=== PATIENT | female | born 1935 | race Caucasian/White ===

== ENCOUNTER 2018-02-07 09:36 | Outpatient (CLI) | payer MEDICARE, SELFPAY ==
[2018-02-07 10:53] LABS: ALT 30 U/L (12-78); AST 26 U/L (15-37); Albumin 3.8 g/dL (3.4-5.0); Alkaline Phosphatase 102 U/L (46-116); Anion Gap 8.8 mmol/L (3-11); BUN 21 mg/dL (7-18); Bilirubin, Total 0.5 mg/dL (0.2-1.0); CO2 27.2 mmol/L (21.0-32.0); CREATININE 0.93 mg/dL (0.55-1.02); Chloride 105 mmol/L (98-107); Cholesterol 248 mg/dL (50-200); Estimated GFR 57.86 (mL/min/1.73m2); Glucose 96 mg/dL (70-100); HDL Cholesterol 70 mg/dL (40-60); LDL CHOLESTEROL 155 mg/dL (<100); Potassium 3.9 mmol/L (3.5-5.1); Sodium 141 mmol/L (136-145); Total Protein 7.1 g/dL (6.4-8.2); Triglyceride 126 mg/dL (30-150)
== END 2018-02-07 09:56 ==
DX: E78.00 Pure hypercholesterolemia, unspecified (principal); I10 Essential (primary) hypertension
CPT/HCPCS: 36415; 80053; 80061; 83721

== ENCOUNTER 2018-02-08 01:06 | Outpatient (CLI) | payer MEDICARE, SELFPAY ==
--- NOTE | 2018-02-08 11:05 | DI.MAMMO_ITS ---
SYMPTOM/DIAGNOSIS: SCREENING. BILATERAL SCREENING MAMMOGRAM: Mammograms were interpreted according to the usual protocol including computer analysis with CAD system, tomosynthesis and C view imaging. Comparison is made with exams from 2010 through 2016. The breasts are composed of scattered fibroglandular densities breast density category B. No suspicious masses or suspicious microcalcifications are seen. There has been no significant change. IMPRESSION: Category 1-B, negative mammogram. Continued screening should be based on the patient's clinical status given her age. [facility] ASSESSMENT OF FINDINGS: Negative. Category 1. Patient will receive a letter notifying them of these results. BI-RADS category B. There are scattered areas of fibroglandular density.
== END 2018-02-08 01:26 ==
DX: Z12.31 Encounter for screening mammogram for malignant neoplasm of breast (principal)
CPT/HCPCS: 77063; 77067

== ENCOUNTER 2019-02-28 00:40 | Outpatient (CLI) | payer MEDICARE, SELFPAY ==
--- NOTE | 2019-02-28 12:21 | DI.MAMMO_ITS ---
EXAM: MG MAMMO SCREENING CLINICAL HISTORY: screening Z12.39. TECHNIQUE: Bilateral full field digital CC and MLO mammographic images were obtained with 3D tomosyn thesis and utilizing computer aided detection (CAD). COMPARISON: There are multiple priors with the most recent from 02/08/2018. FINDINGS: Masses/Architectural Distortion: None seen. Microcalcifications: No suspicious pleomorphic-type are seen. IMPRESSION: 1. No significant interval change with no specific features of malignancy noted. 2. Unless there is more urgent need, screening mammography is recommended, as per [employer] guidelines. ACR BI-RAD Category- 1 Negative Breast Density - Category B - Scattered areas of fibroglandular density A negative radiographic report should not delay biopsy if a dominant or clinically suspicious mass is present. Up to ten percent of cancers are not identified on mammography. A negative report may reinforce clinical impression. Adenosis and dense breasts may obscure an underlying neoplasm. False positive reports average 6 to 10%.
== END 2019-02-28 01:00 ==
DX: Z12.31 Encounter for screening mammogram for malignant neoplasm of breast (principal)
CPT/HCPCS: 77063; 77067

== ENCOUNTER 2019-03-09 03:17 | Outpatient (CLI) | payer MEDICARE, SELFPAY ==
[2019-03-09 10:14] LABS: ALT 21 U/L (14-59); AST 19 U/L (15-37); Albumin 3.7 g/dL (3.4-5.0); Alkaline Phosphatase 88 U/L (46-116); Anion Gap 9.9 mmol/L (3-11); BUN 28 mg/dL (7-18); Bilirubin, Total 0.5 mg/dL (0.2-1.0); CO2 27.1 mmol/L (21.0-32.0); CREATININE 1.05 mg/dL (0.55-1.02); Chloride 104 mmol/L (98-107); Estimated GFR 50.18 (mL/min/1.73m2); Glucose 99 mg/dL (70-100); Sodium 141 mmol/L (136-145); Total Protein 6.9 g/dL (6.4-8.2)
== END 2019-03-09 03:37 ==
DX: E78.5 Hyperlipidemia, unspecified (principal); K21.9 Gastro-esophageal reflux disease without esophagitis; L57.0 Actinic keratosis
CPT/HCPCS: 36415; 80053

== ENCOUNTER 2020-02-28 05:27 | Outpatient (CLI) | payer MEDICARE, SELFPAY ==
[2020-02-28 11:35] LABS: ALT 28 U/L (14-59); AST 22 U/L (15-37); Alkaline Phosphatase 102 U/L (46-116); Anion Gap 7.7 mmol/L (3-11); BUN 27 mg/dL (7-18); Bilirubin, Total 0.6 mg/dL (0.2-1.0); CO2 28.3 mmol/L (21.0-32.0); CREATININE 0.88 mg/dL (0.55-1.02); Calcium 9.2 mg/dL (8.5-10.1); Calculated LDL 220 mg/dL (<100); Chloride 104 mmol/L (98-107); Cholesterol 323 mg/dL (<200); Glucose 92 mg/dL (74-106); HDL Cholesterol 78 mg/dL (40-60); Potassium 3.9 mmol/L (3.5-5.1); Sodium 140 mmol/L (136-145); Total Protein 7.1 g/dL (6.4-8.2); Triglyceride 129 mg/dL (<150)
== END 2020-02-28 05:47 ==
DX: I10 Essential (primary) hypertension (principal); E78.5 Hyperlipidemia, unspecified; K21.9 Gastro-esophageal reflux disease without esophagitis; M81.0 Age-related osteoporosis without current pathological fracture
CPT/HCPCS: 36415; 80053; 80061

== ENCOUNTER 2020-09-11 19:57 | Emergency (ER) | payer MEDICARE, SELFPAY ==
[2020-09-11] VITALS (18 sets, daily range): BP systolic 124–155; BP diastolic 41–70; PULSE 75–94; RESP 17–33; TEMP 36.7–36.9; O2SAT 93–98
--- NOTE | 2020-09-11 20:00 | RT.EKG_ITS ---
APPROVED REPORT Exam: Resting ECG Patient Location: E HR:91 bpm ECG Measurements Heart Rate 91 AXIS WI 151 P 56 QRSd 77 QRS 43 QT 387 T 23 QTc 478 Conclusion Sinus rhythm...normal P axis, V-rate 60- 99 I have reviewed and interpreted ECG and agree with software generated interpretation.
[2020-09-11 20:47] LABS: Abs Immature Grans 0.02 10^3/uL (0.0-0.06); Absolute Basophil Count 0.02 10^3/uL (0.0-0.2); Absolute Eosinophil Count 0.13 10^3/uL (0.0-0.7); Absolute Lymphocyte Count 1.87 10^3/uL (1.2-3.4); Absolute Monocyte Count 0.54 10^3/uL (0.1-0.8); Basophils % 0.3; Eosinophils % 2.2; HCT 35.3 % (36.0-46.0); HGB 11.7 g/dL (11.2-15.7); Immature Grans % 0.3; Lymphocytes % 31.3; MCH 29.2 pg (27.0-33.0); MCHC 33.1 % (32.0-36.0); Neutrophils % 56.9; Nucleated RBC 0 %; Platelet Count 305 10^3/uL (130-400); RBC 4.01 10^6/uL (3.93-5.22); RDW-SD 42.1 fL; WBC 5.98 10^3/uL (4.4-10.8)
[2020-09-11 21:01] LABS: ALT 29 U/L (14-59); AST 21 U/L (15-37); Albumin 3.7 g/dL (3.4-5.0); Alkaline Phosphatase 105 U/L (46-116); BUN 24 mg/dL (7-18); Bilirubin, Total 0.4 mg/dL (0.2-1.0); Calcium 9.1 mg/dL (8.5-10.1); Chloride 107 mmol/L (98-107); Estimated GFR 52.82 (mL/min/1.73m2); Glucose 167 mg/dL (74-106); Lipase 117 U/L (73-393); Potassium 3.5 mmol/L (3.5-5.1); Sodium 144 mmol/L (136-145); Total Protein 7.3 g/dL (6.4-8.2)
[2020-09-11 21:14] LABS: PTT Activated 21.6 sec (21.0-27.5); Prothrombin Time 9.8 sec (9.3-11.0)
[2020-09-11] MEDS: Normal Saline Flush 10 ML SYR IVP (21:37)
[2020-09-11] MEDS: Normal Saline - Diluent 50 ML VIAL IV (21:38)
--- NOTE | 2020-09-11 21:52 | DI.CT_ITS ---
EXAM: CT CHEST/ABD/PEL W CLINICAL HISTORY: fall, anterior chest wall/abd pain. TECHNIQUE: Imaging Protocol: Axial computed tomography images with coronal and sagittal reformatted images were created and reviewed CONTRAST MATERIAL: Intravenous: Omnipaque 350 Contrast volume:100 ml Oral: None COMPARISON: No exams were available for comparison FINDINGS: CHEST: LUNGS: Mild increased markings both lung bases. No associated pleural effusions. No ominous pulmona ry nodules. There are no significant focal findings in the trachea and mainstem bronchi.. MEDIASTINUM: There is no hilar nor mediastinal adenopathy. Visualized thyroid unremarkable.Large retr ocardiac hiatal hernia noted. CARDIAC: Cardiomegaly. No pericardial effusion.Caliber of the thoracic aorta is within normal limits . OSSEOUS: No significant osseous lesions.. ABDOMEN: There is no ascites. LIVER: There are no focal hepatic lesions nor dilatation of intrahepatic ducts. GALLBLADDER/BILIARY: No obvious gallbladder pathology. CBD is not dilated. PANCREAS: No evidence of pancreatic mass nor dilatation of the pancreatic duct. SPLEEN: Spleen is not enlarged. There are no intrasplenic lesions. Splenic and portal veins are corrales nt. ADRENALS: There are no significant adrenal masses. KIDNEYS: There is a nonobstructive 3-4 millimeter calculus in the lower pole calyx of the left kidney . No hydronephrosis nor hydroureter. No calculi in the opposite-right kidney. No solid renal johnny s. Tiny cyst noted in the right kidney. ABDOMINAL AORTA: Abdominal aorta is not enlarged. LYMPH NODES: There is no retroperitoneal nor paraaortic adenopathy. ABDOMINAL WALL/GI: There is a left inguinal hernia noted. This contains mostly fat. There is no tra nsition point at this level. PELVIS: LYMPH NODES: There is no intrapelvic nor inguinal adenopathy. GI: No evidence of appendicitis.No evidence of sigmoid diverticulitis. URINARY BLADDER: No calculi nor masses evident REPRODUCTIVE: Age appropriate. No abnormal adnexal masses. OSSEOUS: No significant osseous lesions. Degenerative anterolisthesis L4 upon L5 IMPRESSION: 1. No acute intrathoracic findings. No pleural effusions 2. Solitary 3-4 millimeter nonobstructive calculus in lower pole of the left kidney. No hydronephros is nor hydroureter. No calculi evident in the opposite-right kidney. 3. Left inguinal hernia which contains mostly fat. 4. Degenerative anterolisthesis of L4 upon L5/spondylosis. RADIATION DOSE DELIVERED: 886.58mGy.cm Total DLP DATA REPOSITORY: All CT scans at this facility are submitted to the National Radiology Data Registry (NRDR) Dose Index Registry (DIR) with the [employer] (ACR). RADIATION OPTIMIZATION: All CT scans at this facility use at least one of these dose optimization te chniques: automated exposure control; mA and/or kV adjustment per patient size (includes targeted exa ms where dose is matched to clinical indication); or iterative reconstruction.
--- NOTE | 2020-09-11 21:54 | DI.CT_ITS ---
EXAM: CT HEAD WO CLINICAL HISTORY: fall. TECHNIQUE: Imaging Protocol: Axial computed tomography images with coronal and sagittal reformatted images were created and reviewed COMPARISON: No exams were available for comparison FINDINGS: There are no skull fractures nor fluid in the visualized paranasal sinuses. There is no evidence of intracranial hemorrhage, mass effect, or shift of midline structures. There are no extra-axial fluid collections. The ventricles are not enlarged or shifted and there is no blo od within the ventricular system nor within the basal cisterns. There is moderate amount of bilateral symmetrical periventricular white matter hypodensity consistent with chronic small vessel disease. IMPRESSION: No acute intracranial findings on this noninfused CT scan of the brain. Moderate white matter small vessel ischemic changes noted. RADIATION DOSE DELIVERED: 673.69mGy.cm Total DLP DATA REPOSITORY: All CT scans at this facility are submitted to the National Radiology Data Registry (NRDR) Dose Index Registry (DIR) with the [employer] (ACR). RADIATION OPTIMIZATION: All CT scans at this facility use at least one of these dose optimization te chniques: automated exposure control; mA and/or kV adjustment per patient size (includes targeted exa ms where dose is matched to clinical indication); or iterative reconstruction.
[2020-09-11 22:10] LABS: Bilirubin Negative (Negative); Blood Negative (Negative); Clarity Clear (Clear); Glucose Negative (Negative); Ketones Negative (Negative); Leukocyte Esterase Negative (Negative); Nitrite Negative (Negative); Specific Gravity 1.025 (1.005-1.025); Urobilinogen 0.2 EU/dL (Up TO 0.2); pH 5.5 (5-8)
--- NOTE | 2020-09-11 22:10 | DI.VRAD_ITS ---
PROCEDURE INFORMATION: Exam: CT Head Without Contrast Exam date and time: 09/11/2020 8:38 PM Age: 85 years old Clinical indication: Injury or trauma; Fall; Blunt trauma (contusions or hematomas) TECHNIQUE: Imaging protocol: Computed tomography of the head without contrast. COMPARISON: No relevant prior studies available. FINDINGS: Brain: There is mild diffuse cerebral atrophy present, consistent with this patient's age. There is moderate diffuse heterogeneity of the white matter attenuation, consistent with chronic white matter ischemic changes. No intracranial hemorrhage, midline shift, or mass effect. No acute loss of quiroz-white differentiation. Cerebral ventricles: The ventricular system demonstrates mild diffuse compensatory enlargement. Bones/joints: Leftward nasal septal deviation and spur. No acute fracture. Paranasal sinuses: Visualized sinuses are unremarkable. No fluid levels. Mastoid air cells: Visualized mastoid air cells are well aerated. Soft tissues: Unremarkable. IMPRESSION: 1. No acute abnormality. 2. Moderate white matter small vessel ischemic change. Dictated and Authenticated by: Mikhail Albright MD. Ordering:DAVID Pearson MD
--- NOTE | 2020-09-11 22:15 | DI.VRAD_ITS ---
PROCEDURE INFORMATION: Exam: CT Chest With Contrast; Diagnostic Exam date and time: 09/11/2020 9:35 PM Age: 85 years old Clinical indication: Abdominal pain; Chest pain TECHNIQUE: Imaging protocol: Diagnostic computed tomography of the chest with contrast. 3D rendering (Not supervised by radiologist): MIP and/or 3D reconstructed images were created by the technologist. COMPARISON: No relevant prior studies available. FINDINGS: Lungs: Dependent subsegmental atelectasis in the lung bases. Mild scarring in the medial right middle lobe and inferior lingula. Pleural spaces: Unremarkable. No pneumothorax. No pleural effusion. Heart: Coronary artery calcification. Multichamber cardiomegaly. No pericardial effusion. Mediastinal space: Large paraesophageal hiatal hernia. Aorta: Unremarkable. No aortic aneurysm. Lymph nodes: Unremarkable. No enlarged lymph nodes. Bones/joints: Mild midthoracic spondylosis. No acute fracture. Soft tissues: Unremarkable. IMPRESSION: 1. Multichamber cardiomegaly. 2. Large paraesophageal hiatal hernia. PROCEDURE INFORMATION: Exam: CT Abdomen And Pelvis With Contrast Exam date and time: 09/11/2020 9:35 PM Age: 85 years old Clinical indication: Abdominal pain; Chest pain TECHNIQUE: Imaging protocol: Computed tomography of the abdomen and pelvis with contrast. 3D rendering (Not supervised by radiologist): MIP and/or 3D reconstructed images were created by the technologist. COMPARISON: No relevant prior studies available. FINDINGS: Liver: Normal. No mass. Gallbladder and bile ducts: Normal. No calcified stones. No ductal dilation. Pancreas: Normal. No ductal dilation. Spleen: Normal. No splenomegaly. Adrenal glands: Normal. No mass. Kidneys and ureters: Normal. No hydronephrosis. Stomach and bowel: Unremarkable. No obstruction. No mucosal thickening. Appendix: No evidence of appendicitis. Intraperitoneal space: Unremarkable. No free air. No significant fluid collection. Vasculature: Multiple pelvic phleboliths. Mild calcified atherosclerotic disease. No aneurysm. Lymph nodes: Unremarkable. No enlarged lymph nodes. Urinary bladder: Unremarkable as visualized. Reproductive: Unremarkable as visualized. Bones/joints: 5 mm grade 1 anterolisthesis at L4-L5 with vacuum disc phenomenon minimal disc space narrowing. Mild L5-S1 degenerative disc disease. Multilevel lumbar facet arthropathy. Vertebral body heights are maintained. Soft tissues: Small bilateral fat filled inguinal hernias. IMPRESSION: 1. No acute fracture or internal organ injury. 2. Lumbar spondylosis. Dictated and Authenticated by: Mikhail Albright MD. Ordering:DAVID Pearson MD
--- NOTE | 2020-09-11 22:31 | ED.GENADUL_ITS ---
Discharge Plan Disposition Patient Disposition: HOME Condition: Stable Discharge Details Clinical Impression: Anterior chest wall pain Primary Care Provider: Surekha Baez ED Provider: Michel Mary Home Meds and New Rx's Prescriptions: Continued Ocuvite with Lutein 1 EACH tablet 1 tab PO DAILY RF: 0 CENTRUM SILVER TABLET 1 EACH tablet 1 tab PO DAILY RF: 0 amlodipine [Norvasc] 10 mg tablet 10 mg PO QAM Qty: 90 RF: 4 omeprazole 20 mg capsule,delayed release(DR/EC) 20 mg PO DAILY Qty: 90 RF: 1 triamterene-hydrochlorothiazid 37.5-25 mg capsule 1 cap PO DAILY Qty: 90 RF: 4 Discharge Instructions Instructions: Chest Wall Pain (ED) Additional Instructions: Laboratory values and imaging this evening in the ER did not reveal any obvious emergent process. Take-home pack of Percocet given. This medication may cause drowsiness and/or constipation. Pwtt-lfd-wuvtizn stool softener may be beneficial while taking this medication. Gentle stretching as tolerated. Cool and/or warm compresses every 2 hours for 20 minutes. Fslw-afd-bdchdwm medications as directed for discomfort. Do not exceed 4 g of Tylenol in any given day. Please watch for new or worsening symptoms and return to the ER for any concerns. Otherwise I recommend reaching out your primary care provider tomorrow for outpatient reevaluation. Medical Decision Making 85-year-old female, not anticoagulated, mechanical fall forward down 3 stairs landing on a box of groceries, complaining of chest wall pain and epigastric discomfort. Given her age and the mechanism of injury I believe obtaining routine laboratory values, CT imaging of head, chest, abdomen and pelvis is reasonable. She will be given 2 mg IV morphine. Clinically she appears well, nontoxic. She is neurologically intact. No obvious distracting injuries. Low suspicion for intracranial process. Very well could have a rib fracture, small pneumothorax. Less suspicious for intraabdominal process Laboratory values are unremarkable for any obvious emergent process. CT imaging of head, chest, abdomen, pelvis read by radiology as no acute pathology. Patient reports moderate improvement of her discomfort with the morphine. Will be given a take-home pack of Percocet. We discussed cool compresses every 2 hours for twins. Standard discharge and return precautions given. Patient has no additional questions or concerns and is comfortable with discharge. Incentive spirometer with teaching given. Medical Records Medical records reviewed: Yes I reviewed the patient's medical records. Imaging Data Radiologic Study: Attestation: I personally reviewed and interpreted this imaging study as follows: Radiologist's impression: CT imaging of head read by radiology as no acute abnormality. CT imaging of chest, abdomen, pelvis, no acute fracture or internal organ injury. Lumbar spondylosis. Multichamber cardiomegaly. Large paraesophageal hiatal hernia Lab Data Lab results reviewed: Yes I reviewed the patient's lab results. Labs: Laboratory Tests Range/Units 09/11/20 09/11/20 09/11/20 20:40 20:40 20:40 WBC (4.4-10.8) 10^3/uL 5.98 RBC (3.93-5.22) 10^6/uL 4.01 Hgb (11.2-15.7) g/dL 11.7 Hct (36.0-46.0) % 35.3 L MCV (80-95) fL 88.0 MCH (27.0-33.0) pg 29.2 MCHC (32.0-36.0) % 33.1 RDW (11.7-14.6) % 13.0 Plt Count (130-400) 10^3/uL 305 MPV (8.0-11.0) fL 10.0 Immature Gran % 0.3 Neutrophils % 56.9 Lymphocytes % 31.3 Monocytes % 9.0 Eosinophils % 2.2 Basophils % 0.3 Nucleated RBC % % 0 Absolute Neutrophils (1.2-6.7) 10^3/uL 3.40 Absolute Lymphocytes (1.2-3.4) 10^3/uL 1.87 Absolute Monocytes (0.1-0.8) 10^3/uL 0.54 Absolute Eosinophils (0.0-0.7) 10^3/uL 0.13 Absolute Basophils (0.0-0.2) 10^3/uL 0.02 PT (9.3-11.0) sec 9.8 INR (0.9-1.1) 1.0 APTT (21.0-27.5) sec 21.6 Sodium (136-145) mmol/L 144 Potassium (3.5-5.1) mmol/L 3.5 Chloride (98-107) mmol/L 107 Carbon Dioxide (21.0-32.0) mmol/L 27.0 Anion Gap (3-11) mmol/L 10.0 BUN (7-18) mg/dL 24 H Creatinine (0.55-1.02) mg/dL 1.0 Estimated GFR/1.73 m2 (mL/min/1.73m2) 52.82 Glucose (74-106) mg/dL 167 H Calcium (8.5-10.1) mg/dL 9.1 Total Bilirubin (0.2-1.0) mg/dL 0.4 AST (15-37) U/L 21 ALT (14-59) U/L 29 Alkaline Phosphatase (46-116) U/L 105 Total Protein (6.4-8.2) g/dL 7.3 Albumin (3.4-5.0) g/dL 3.7 Lipase (73-393) U/L 117 Urine Color (Yellow) Urine Clarity (Clear) Urine pH (5-8) Ur Specific [place] (1.005-1.025) Urine Protein (Negative) mg/dL Urine Ketones (Negative) mg/dL Urine Blood (Negative) Urine Nitrite (Negative) Urine Bilirubin (Negative) Urine Urobilinogen (Up TO 0.2) EU/dL Ur Leukocyte Esterase (Negative) Urine Glucose (Negative) mg/dL Range/Units 09/11/20 22:00 WBC (4.4-10.8) 10^3/uL RBC (3.93-5.22) 10^6/uL Hgb (11.2-15.7) g/dL Hct (36.0-46.0) % MCV (80-95) fL MCH (27.0-33.0) pg MCHC (32.0-36.0) % RDW (11.7-14.6) % Plt Count (130-400) 10^3/uL MPV (8.0-11.0) fL Immature Gran % Neutrophils % Lymphocytes % Monocytes % Eosinophils % Basophils % Nucleated RBC % % Absolute Neutrophils (1.2-6.7) 10^3/uL Absolute Lymphocytes (1.2-3.4) 10^3/uL Absolute Monocytes (0.1-0.8) 10^3/uL Absolute Eosinophils (0.0-0.7) 10^3/uL Absolute Basophils (0.0-0.2) 10^3/uL PT (9.3-11.0) sec INR (0.9-1.1) APTT (21.0-27.5) sec Sodium (136-145) mmol/L Potassium (3.5-5.1) mmol/L Chloride (98-107) mmol/L Carbon Dioxide (21.0-32.0) mmol/L Anion Gap (3-11) mmol/L BUN (7-18) mg/dL Creatinine (0.55-1.02) mg/dL Estimated GFR/1.73 m2 (mL/min/1.73m2) Glucose (74-106) mg/dL Calcium (8.5-10.1) mg/dL Total Bilirubin (0.2-1.0) mg/dL AST (15-37) U/L ALT (14-59) U/L Alkaline Phosphatase (46-116) U/L Total Protein (6.4-8.2) g/dL Albumin (3.4-5.0) g/dL Lipase (73-393) U/L Urine Color (Yellow) Yellow Urine Clarity (Clear) Clear Urine pH (5-8) 5.5 Ur Specific [place] (1.005-1.025) 1.025 Urine Protein (Negative) mg/dL Negative Urine Ketones (Negative) mg/dL Negative Urine Blood (Negative) Negative Urine Nitrite (Negative) Negative Urine Bilirubin (Negative) Negative Urine Urobilinogen (Up TO 0.2) EU/dL 0.2 Ur Leukocyte Esterase (Negative) Negative Urine Glucose (Negative) mg/dL Negative ECG Data Attestation: I personally reviewed and interpreted this ECG (s) as follows: Interpretation: Please see official report by Dr. Lanier. Sinus rhythm, ventricular of 91. No STEMI. HPI General Mode of arrival: ambulatory . Date/Time Provider Initiated Documentation: 09/11/20 19:58 . Limitations to Documentation: no limitations . Information obtained by: patient . HPI Narrative: This is an 85-year-old female, past medical history of hypertension, GERD, not on any anticoagulation, presented to the ER for evaluation. She states just prior to arrival she was carrying a box of groceries, tripped mechanically forward, falling down 3 stairs and landing on the box of groceries striking her chest. She is unsure whether she hit her head but denies any LOC, headache, visual change, neck pain, back pain, abdominal pain, nausea or vomiting, change in bowel or bladder function, numbness, tingling, weakness. She reports moderate anterior chest wall discomfort worse with movement or breathing. She was asymptomatic prior to the fall. She has not taken any medications [id number] for her symptoms. She denies any other injuries. She has been ambulatory since the fall. She denies any dizziness. No additional questions or concerns. Related Data Home Medications Medication Instructions Recorded Confirmed Centrum Silver Tablet 1 tab PO DAILY 10/27/12 09/11/20 Ocuvite with Lutein 1 tab PO DAILY 10/27/12 09/11/20 amlodipine 10 mg tablet 10 mg PO QAM #90 t 08/27/20 09/11/20 omeprazole 20 mg capsule,delayed 20 mg PO DAILY #90 cap 08/27/20 09/11/20 release triamterene 37.5 1 cap PO DAILY #90 tab-cap 08/27/20 09/11/20 mg-hydrochlorothiazide 25 mg capsule Previous Rx's Medication Instructions Recorded amlodipine 10 mg tablet 10 mg PO QAM #90 t 08/27/20 omeprazole 20 mg capsule,delayed 20 mg PO DAILY #90 cap 08/27/20 release triamterene 37.5 1 cap PO DAILY #90 tab-cap 08/27/20 mg-hydrochlorothiazide 25 mg capsule Allergies Allergy/AdvReac Type Severity Reaction Status Date / Time SHEN Inhibitors Allergy Mild Verified 09/11/20 20:12 General Stated Complaint: Chest/Rib SUMI: 2 Review of Systems Constitutional Constitutional: Denies fatigue, Denies fever(s), Denies headache(s) and Denies weakness Eyes Eyes: Denies change in vision ENT Ears, Nose, Mouth, and Throat: Denies headache(s) and Denies neck pain Cardiovascular Cardiovascular: Reports chest pain (Anterior chest wall) and Denies dyspnea Respiratory Respiratory: Denies cough and Denies dyspnea Gastrointestinal Gastrointestinal: Reports abdominal pain (Epigastric), Denies nausea and Denies vomiting Musculoskeletal Musculoskeletal: Denies back pain, Denies neck pain, Denies numbness and Denies tingling Integumentary/Breasts Skin/Breast: Denies rash Neurologic Neurologic: Denies headache(s), Denies numbness, Denies tingling and Denies weakness Endocrine Endocrine: Denies fatigue Hematologic/Lymphatic Hematologic/Lymphatic: Denies easy bleeding and Denies easy bruising PFSH Surgical History Appendectomy Ligation of fallopian tube Family History Mother , AGE 89 Heart disease Father , AGE 42 Depression Sister Diabetes Essential hypertension Hyperlipidemia Heart disease Sister Hyperlipidemia Diabetes Brother , AGE 70 Heart disease High cholesterol Brother , AGE 71 Cancer Maternal Grandfather Heart disease Sister Diabetes Hypertension Cancer Brother , AGE 77 Cancer Daughter , 2 days old No problems noted. Paternal Grandfather Asthma Maternal Grandmother , age 103 No problems noted. Social History Smoking/Tobacco Use Status: Former Tobacco Use Tobacco: How many years used: 3 Smoking risk assessment performed?: Yes Alcohol Intake: current Alcohol Intake frequency: holidays/special occasions only Drug use: Never Substance use type: does not use Caregiver/Support person: No Housing: house Pets and animals: No Sexually active: No Do you think of yourself as: straight/heterosexual Current gender identity: male What is your relationship status?: How often do you talk on the phone with friends or family?: three or more times per week How often do you attend jehovah's witness or sabianist services?: decline to answer Do you belong to any clubs or organized social groups?: yes Panel score (0-1 are the most socially isolated patients): 3 Seatbelt use: always Helmet use: No Drive intox or ride w/intox bulk driver: No Do you feel safe at home: Yes Do you feel safe in your relationship?: Yes Exam Const General: cooperative, healthy appearing, comfortable and no acute distress Orientation: alert, awake and oriented x3 HENMT Head: normal to inspection, normocephalic and atraumatic Ears: external ears normal, TM's normal bilaterally and EAC's normal General nose exam: external nose normal Face and sinus: normal facial exam Mouth: moist mucous membranes Throat: posterior oropharynx normal Eyes General: appearance normal, both eyes and all related structures Alignment and Position: alignment normal Periorbital: periorbital findings normal Eyelids: eyelids normal Conjunctivae: conjunctivae normal Sclera: sclerae normal Cornea: corneas normal Pupils: PERRL EOM: EOM intact bilaterally Direct ophthalmoscopy: normal light reflex Neck Neck: normal visual inspection, full ROM, trachea midline, supple and nontender Chest Chest: normal inspection of the chest, no crepitus and tenderness (Diffuse anterior chest wall, no ecchymosis) Resp Effort & Inspection: normal respiratory effort and able to speak in complete sentences Auscultation: clear to auscultation bilaterally Cardio Rate: regular rate Rhythm: regular rhythm GI Inspection: normal to inspection Palpation: soft, not firm, no guarding, no pulsatile masses and tender in the epigastrum (mild); with no rebound tenderness Auscultation: normal bowel sounds Back/Spine/Pelvis Back: No back tenderness Skin General skin exam: no rashes or lesions noted Neuro General: patient alert, patient awake, patient oriented x3, moves all extremities and no focal motor deficits Cranial Nerves: CN's II-XI intact bilaterally Cognition: normal cognition Speech: speech normal Gait: normal gait Motor: muscle tone normal throughout Sensory Exam: no sensory deficits noted Extrem General: normal to inspection, full ROM and capillary refill normal Psych Appearance: grossly normal Mental Status: mental status grossly normal Course Vital Signs Vital signs: Vital Signs Temperature 36.9 C 09/11/20 20:00 Pulse 94 H 09/11/20 20:00 Respiratory Rate 22 09/11/20 20:00 Blood Pressure 155/60 H 09/11/20 20:00 Pulse Oximetry 98 09/11/20 20:00 Temperature 36.9 C 09/11/20 20:00 Temperature Source Skin 09/11/20 20:00 Pulse 88 09/11/20 22:08 Pulse 84 09/11/20 21:10 Respiratory Rate 21 09/11/20 21:10 Respiratory Effort Non-Labored 09/11/20 20:17 Respiratory Depth Normal 09/11/20 20:17 Respiratory Pattern Normal 09/11/20 20:17 Blood Pressure 125/61 09/11/20 22:08 Blood Pressure Mean 77 09/11/20 22:08 Blood Pressure Position Sitting 09/11/20 20:00 Pulse Oximetry 94 09/11/20 22:10 Oxygen Delivery Method Room Air 09/11/20 20:00 Oxygen Flow Rate 0 09/11/20 20:00 Pain Level 10 09/11/20 22:08 Lab/Test Results Lab/Test Results: Laboratory Tests Range/Units 09/11/20 09/11/20 09/11/20 20:40 20:40 20:40 WBC (4.4-10.8) 10^3/uL 5.98 RBC (3.93-5.22) 10^6/uL 4.01 Hgb (11.2-15.7) g/dL 11.7 Hct (36.0-46.0) % 35.3 L MCV (80-95) fL 88.0 MCH (27.0-33.0) pg 29.2 MCHC (32.0-36.0) % 33.1 RDW (11.7-14.6) % 13.0 Plt Count (130-400) 10^3/uL 305 MPV (8.0-11.0) fL 10.0 Immature Gran % 0.3 Neutrophils % 56.9 Lymphocytes % 31.3 Monocytes % 9.0 Eosinophils % 2.2 Basophils % 0.3 Nucleated RBC % % 0 Absolute Neutrophils (1.2-6.7) 10^3/uL 3.40 Absolute Lymphocytes (1.2-3.4) 10^3/uL 1.87 Absolute Monocytes (0.1-0.8) 10^3/uL 0.54 Absolute Eosinophils (0.0-0.7) 10^3/uL 0.13 Absolute Basophils (0.0-0.2) 10^3/uL 0.02 PT (9.3-11.0) sec 9.8 INR (0.9-1.1) 1.0 APTT (21.0-27.5) sec 21.6 Sodium (136-145) mmol/L 144 Potassium (3.5-5.1) mmol/L 3.5 Chloride (98-107) mmol/L 107 Carbon Dioxide (21.0-32.0) mmol/L 27.0 Anion Gap (3-11) mmol/L 10.0 BUN (7-18) mg/dL 24 H Creatinine (0.55-1.02) mg/dL 1.0 Estimated GFR/1.73 m2 (mL/min/1.73m2) 52.82 Glucose (74-106) mg/dL 167 H Calcium (8.5-10.1) mg/dL 9.1 Total Bilirubin (0.2-1.0) mg/dL 0.4 AST (15-37) U/L 21 ALT (14-59) U/L 29 Alkaline Phosphatase (46-116) U/L 105 Total Protein (6.4-8.2) g/dL 7.3 Albumin (3.4-5.0) g/dL 3.7 Lipase (73-393) U/L 117 Urine Color (Yellow) Urine Clarity (Clear) Urine pH (5-8) Ur Specific [place] (1.005-1.025) Urine Protein (Negative) mg/dL Urine Ketones (Negative) mg/dL Urine Blood (Negative) Urine Nitrite (Negative) Urine Bilirubin (Negative) Urine Urobilinogen (Up TO 0.2) EU/dL Ur Leukocyte Esterase (Negative) Urine Glucose (Negative) mg/dL Range/Units 09/11/20 22:00 WBC (4.4-10.8) 10^3/uL RBC (3.93-5.22) 10^6/uL Hgb (11.2-15.7) g/dL Hct (36.0-46.0) % MCV (80-95) fL MCH (27.0-33.0) pg MCHC (32.0-36.0) % RDW (11.7-14.6) % Plt Count (130-400) 10^3/uL MPV (8.0-11.0) fL Immature Gran % Neutrophils % Lymphocytes % Monocytes % Eosinophils % Basophils % Nucleated RBC % % Absolute Neutrophils (1.2-6.7) 10^3/uL Absolute Lymphocytes (1.2-3.4) 10^3/uL Absolute Monocytes (0.1-0.8) 10^3/uL Absolute Eosinophils (0.0-0.7) 10^3/uL Absolute Basophils (0.0-0.2) 10^3/uL PT (9.3-11.0) sec INR (0.9-1.1) APTT (21.0-27.5) sec Sodium (136-145) mmol/L Potassium (3.5-5.1) mmol/L Chloride (98-107) mmol/L Carbon Dioxide (21.0-32.0) mmol/L Anion Gap (3-11) mmol/L BUN (7-18) mg/dL Creatinine (0.55-1.02) mg/dL Estimated GFR/1.73 m2 (mL/min/1.73m2) Glucose (74-106) mg/dL Calcium (8.5-10.1) mg/dL Total Bilirubin (0.2-1.0) mg/dL AST (15-37) U/L ALT (14-59) U/L Alkaline Phosphatase (46-116) U/L Total Protein (6.4-8.2) g/dL Albumin (3.4-5.0) g/dL Lipase (73-393) U/L Urine Color (Yellow) Yellow Urine Clarity (Clear) Clear Urine pH (5-8) 5.5 Ur Specific [place] (1.005-1.025) 1.025 Urine Protein (Negative) mg/dL Negative Urine Ketones (Negative) mg/dL Negative Urine Blood (Negative) Negative Urine Nitrite (Negative) Negative Urine Bilirubin (Negative) Negative Urine Urobilinogen (Up TO 0.2) EU/dL 0.2 Ur Leukocyte Esterase (Negative) Negative Urine Glucose (Negative) mg/dL Negative
== END 2020-09-11 22:56 | disposition home or self-care (01) ==
PROVIDERS: Emergency Provider Physician Assistant
DX: R07.81 Pleurodynia (principal); R10.13 Epigastric pain; W10.8XXA Fall (on) (from) other stairs and steps, initial encounter
CPT/HCPCS: 36415; 74177; 80053; 83690; 93005; 96374; 99285; 70450; 71260; 81003; 85025; 85610; 85730; 93010

== ENCOUNTER 2020-09-23 16:15 | Emergency (ER) | payer MEDICARE, SELFPAY ==
--- NOTE | 2020-09-23 16:15 | RT.EKG_ITS ---
APPROVED REPORT Exam: Resting ECG Patient Location: E HR:85 bpm ECG Measurements Heart Rate 85 AXIS NJ 148 P 23 QRSd 81 QRS 31 QT 370 T 22 QTc 440 Conclusion Sinus rhythm...normal P axis, V-rate 60- 99 Physician: no stemi
[2020-09-23 16:19] VITALS: BP 151/68; PULSE 86; RESP 16; TEMP 36.2; O2SAT 96
--- NOTE | 2020-09-23 16:30 | DI.RAD_ITS ---
EXAM: XR RIBS LT W PA LAT CHEST CLINICAL HISTORY: fall, left rib pain, r/o pneumonia/fx TECHNIQUE: 2D digital imaging was performed. COMPARISON: No exams were available for comparison FINDINGS: MEDIASTINUM: Normal. HEART: Normal. PULMONARY VASCULATURE: Normal. LUNGS: Atelectasis or scarring is seen in the left lower lobe. PLEURAL SPACE: There is blunting of the left costophrenic angle which may represent a small left pleu ral effusion. No right pleural effusion is present. There is no pneumothorax. BONE:Degenerative changes are seen in the spine. The bones are osteopenic. LEFT RIBS: No displaced rib fractures identified. OTHER FINDINGS:There may be a hiatal hernia. IMPRESSION: 1. Small left pleural effusion. 2. No displaced rib fracture. 3. Atelectasis/scarring in the left lower lobe. DATA REPOSITORY: RADIATION DOSE DELIVERED:
[2020-09-23] MEDS: Lidocaine 5% Patch 1 PATCH TP (16:36)
--- NOTE | 2020-09-23 16:47 | W.ED.GENAD ---
Discharge Plan Disposition Patient Disposition: HOME Condition: Good Discharge Details Clinical Impression: Rib pain on left side, Rib pain on right side, Closed fracture of manubrium Primary Care Provider: Surekha Baez ED Provider: Henrik Fox Home Meds and New Rx's Prescriptions: New azithromycin 250 mg tablet 250 mg PO DAILY 5 Days Qty: 5 RF: 0 lidocaine [Lidoderm] 5 % adhesive patch,medicated 1 patch topical Q24H Qty: 15 RF: 0 Continued oxycodone-acetaminophen 5-325 mg tablet 1 tab PO TID MDD 3 tablets PRN (Reason: pain) Qty: 12 RF: 0 Ocuvite with Lutein 1 EACH tablet 1 tab PO DAILY RF: 0 CENTRUM SILVER TABLET 1 EACH tablet 1 tab PO DAILY RF: 0 amlodipine [Norvasc] 10 mg tablet 10 mg PO QAM Qty: 90 RF: 4 omeprazole 20 mg capsule,delayed release(DR/EC) 20 mg PO DAILY Qty: 90 RF: 1 triamterene-hydrochlorothiazid 37.5-25 mg capsule 1 cap PO DAILY Qty: 90 RF: 4 ibuprofen 200 mg Tablet 400 mg PO PRN PRNRF: 0 Discharge Instructions Instructions: Chest Wall Pain (ED) Additional Instructions: At this time your images seem to show some irritation of the ribs which may have been previous rib fractures as well as a potential small fracture over your sternal area. Please use the Lidoderm patches. You can apply 3 patches per day. 1 over your right ribs 1 over your left ribs and run over your sternum. Leave these on for 12 hours, then take them off for 12 hours, and then apply a new one the next day. I also believe that you may be developing the early signs of a early pneumonia. Please take the antibiotic azithromycin as prescribed to help prevent this. All of these medications have been sent to your pharmacy at [facility]. Please take Tylenol as needed for pain. If you notice any worsening of your symptoms, or any new symptoms such as vomiting, diarrhea, fever, chills, shortness of breath, chest pain, numbness, weakness, or fainting , please return immediately to the emergency department for reevaluation. Please follow up with your primary care provider as soon as possible for reassessment and reevaluation. As always, it was a pleasure participating in your medical care today. Referrals: Surekha Baez NP [Primary Care Provider] - Medical Decision Making 85-year-old female with a past medical history of appendectomy, fallopian tube ligation, arthritis, presents today for left chest wall pain and frontal sternal pain. Patient fell on 09/11/2020. At that time the patient has CT chest abdomen pelvis which was unremarkable for acute process or fracture. Patient states that since then she has had pain in her anterior chest and her left and right chest. She states that it is only present with palpation and movement. It is not present at rest. It is worse when it is pressed on. She has been taking some oxycodone from her PCP and these have helped somewhat. She does admit to a cough but denies any productivity. She denies any fever or chills. She denies any hemoptysis or purulent sputum. She denies any vomiting or diarrhea. No other complaints at this time. She denies any history of heart attacks. Physical exam demonstrates reproducible tenderness over the anterior chest as well as the left and right chest. No gross deformities otherwise, vital signs stable, normal oxygenation, unremarkable breath sounds. No thoracic or lumbar cervical spine tenderness. I did review the previous CT scan, it was read as negative by radiology however I do believe that there is a manubrial fracture. It looks like there might be some old small deformities on the right fifth rib, but no other evidence of large rib fractures. EKG shows no STEMI or other significant abnormality. Symptoms appear clearly musculoskeletal. We will get a repeat chest x-ray to evaluate for new pneumothorax or pneumonia, both of which I feel are less likely. She does have a slight increase in focality for left rib pain, we will get left rib x-rays again to see if there is any new fractures. We will give Lidoderm patch, monitor closely and reassess. I do feel that she will be stable for discharge. Symptoms at this time are clearly inconsistent with ACS, dissection, or aneurysm or PE 5:55 PM X-ray results have returned negative for acute process however there is evidence of a small left effusion and atelectasis in the left lung base. I feel that this may be a component of a very early start of potential pneumonia although she does not demonstrate evidence of fulminant pneumonia at this time. We will give a prescription for azithromycin to prevent this. With evidence of the concerning potential manubrium fracture but no other abnormalities I see no indication for admission. You can have a maximum of 3 Lidoderm patches per day, we will do an additional Lidoderm patch over the anterior chest on the right chest wall. She has had notable relief with the Lidoderm patch on the left. Patient will be discharged. Discussed red flags which to return. I have extensively reviewed the treatment plan and discharge instructions with the patient. I have addressed all patient concerns at this time. The patient was made aware of what symptoms to monitor for that would warrant a return to the emergency department. Discussed the plan with the patient, they demonstrate verbal understanding and agreement with our assessment and plan at this time. The documentation in this chart was dictated using [employer] dictation software. Please excuse any dictation errors. FINDINGS: Bones/joints: Bones are demineralized. Degenerative arthritis in the visualized spine and shoulders. Mild anterior wedging of several thoracic vertebral bodies. Lungs: Strands of atelectasis in the left lung base.. Pleural space: Small left pleural effusion. Heart/Mediastinum: Esophageal hiatal hernia. Vasculature: Aortic calcifications. Soft tissues: Normal. IMPRESSION: No rib fracture identified but there is a small left effusion FINDINGS: Lungs: Strands of atelectasis in the left lung base.. Pleural spaces: Small left pleural effusion. Heart/Mediastinum: Esophageal hiatal hernia. Vasculature: Aortic calcifications. Bones/joints: Bones are demineralized. Degenerative arthritis in the visualized spine and shoulders. Mild anterior wedging of several thoracic vertebral bodies. IMPRESSION: Small left pleural effusion with atelectasis in the left lung base and a large esophageal hiatal hernia Thank you for allowing us to participate in the care of your patient. Dictated and Authenticated by: Trini Davidson MD 09/23/2020 5:26 PM Eastern Time ([place] & [place]) HPI General Date/Time Provider Initiated Documentation: 09/23/20 16:21. HPI Narrative: 85-year-old female with a past medical history of appendectomy, fallopian tube ligation, arthritis, presents today for left chest wall pain and frontal sternal pain. Patient fell on 09/11/2020. At that time the patient has CT chest abdomen pelvis which was unremarkable for acute process or fracture. Patient states that since then she has had pain in her anterior chest and her left and right chest. She states that it is only present with palpation and movement. It is not present at rest. It is worse when it is pressed on. She has been taking some oxycodone from her PCP and these have helped somewhat. She does admit to a cough but denies any productivity. She denies any fever or chills. She denies any hemoptysis or purulent sputum. She denies any vomiting or diarrhea. No other complaints at this time. She denies any history of heart attacks. Related Data Home Medications Medication Instructions Recorded Confirmed Centrum Silver Tablet 1 tab PO DAILY 10/27/12 09/23/20 Ocuvite with Lutein 1 tab PO DAILY 10/27/12 09/23/20 amlodipine 10 mg tablet 10 mg PO QAM #90 t 08/27/20 09/23/20 omeprazole 20 mg capsule,delayed 20 mg PO DAILY #90 cap 08/27/20 09/23/20 release triamterene 37.5 1 cap PO DAILY #90 tab-cap 08/27/20 09/23/20 mg-hydrochlorothiazide 25 mg capsule oxycodone-acetaminophen 5 mg-325 1 tab PO TID PRN #12 tab MDD 3 09/18/20 09/23/20 mg tablet tablets azithromycin 250 mg PO DAILY 5 Days #5 tab 09/23/20 ibuprofen 400 mg PO PRN PRN 09/23/20 09/23/20 lidocaine [Lidoderm] 1 patch TOPICAL Q24H #15 ea 09/23/20 Previous Rx's Medication Instructions Recorded amlodipine 10 mg tablet 10 mg PO QAM #90 t 08/27/20 omeprazole 20 mg capsule,delayed 20 mg PO DAILY #90 cap 08/27/20 release triamterene 37.5 1 cap PO DAILY #90 tab-cap 08/27/20 mg-hydrochlorothiazide 25 mg capsule oxycodone-acetaminophen 5 mg-325 1 tab PO TID PRN #12 tab MDD 3 09/18/20 mg tablet tablets azithromycin 250 mg PO DAILY 5 Days #5 tab 09/23/20 lidocaine [Lidoderm] 1 patch TOPICAL Q24H #15 ea 09/23/20 Allergies Allergy/AdvReac Type Severity Reaction Status Date / Time SHEN Inhibitors Allergy Mild Verified 09/23/20 16:27 General Stated Complaint: Chest/Rib SUMI: 2 Review of Systems All systems reviewed & are unremarkable except as noted in HPI and below PFSH Surgical History Appendectomy Ligation of fallopian tube Family History Mother , AGE 89 Heart disease Father , AGE 42 Depression Sister Diabetes Essential hypertension Hyperlipidemia Heart disease Sister Hyperlipidemia Diabetes Brother , AGE 70 Heart disease High cholesterol Brother , AGE 71 Cancer Maternal Grandfather Heart disease Sister Diabetes Hypertension Cancer Brother , AGE 77 Cancer Daughter , 2 days old No problems noted. Paternal Grandfather Asthma Maternal Grandmother , age 103 No problems noted. Social History Smoking/Tobacco Use Status: Former Tobacco Use Tobacco: How many years used: 3 Smoking risk assessment performed?: Yes Alcohol Intake: current Alcohol Intake frequency: holidays/special occasions only Drug use: Never Substance use type: does not use Caregiver/Support person: No Housing: house Pets and animals: No Sexually active: No Do you think of yourself as: straight/heterosexual Current gender identity: male What is your relationship status?: How often do you talk on the phone with friends or family?: three or more times per week How often do you attend sabianism or evangelical services?: decline to answer Do you belong to any clubs or organized social groups?: yes Panel score (0-1 are the most socially isolated patients): 3 Seatbelt use: always Helmet use: No Drive intox or ride w/intox van cdl driver: No Do you feel safe at home: Yes Do you feel safe in your relationship?: Yes Exam Narrative Exam Narrative: 1.Const: Well-nourished, Well-developed, appearing stated age 2.Eyes: PERRL, no conjunctival injection, and symmetrical lids. 3.ENT: Atraumatic external nose and ears. Moist MM. Neck: Symmetric, trachea midline, No thyromegaly. 4.CVS: +S1/S2, No murmurs or gallops. Peripheral pulses 2+ and equal in all extremities. Brisk capillary refill in all extremities. 5.RESP: Unlabored respiratory effort. Clear to auscultation bilaterally. No wheezes rales or rhonchi tenderness over the anterior chest left chest and right chest. All of which is reproducible. No subcutaneous crepitus. No diminished breath sounds. 6.GI: Soft, Nontender/Nondistended, No hepatosplenomegaly. No guarding or rebound. 7.MSK: Normocephalic/Atraumatic, Extremities w/o deformity or ttp No cyanosis or clubbing, Normal movement of all extremities. No significant tenderness over the shoulders. Normal movement of the shoulders. 8.Skin: Warm, Dry. No rashes or lesions. 9.Neuro: cook roast II-XII grossly intact. Sensation grossly intact, no focal neurologic deficits. 10.Psych: (AAO) x3. Appropriate mood and affect Course Vital Signs Vital signs: Vital Signs Temperature 36.2 C L 09/23/20 16:19 Pulse 86 09/23/20 16:19 Respiratory Rate 16 09/23/20 16:19 Blood Pressure 151/68 H 09/23/20 16:19 Pulse Oximetry 96 09/23/20 16:19 Temperature 36.2 C L 09/23/20 16:19 Temperature Source Temporal Artery Scan 09/23/20 16:19 Pulse 86 09/23/20 16:19 Respiratory Rate 16 09/23/20 16:19 Respiratory Effort Non-Labored 09/23/20 16:38 Respiratory Depth Normal 09/23/20 16:38 Respiratory Pattern Normal 09/23/20 16:38 Blood Pressure 151/68 H 09/23/20 16:19 Blood Pressure Position Sitting 09/23/20 16:19 Pulse Oximetry 96 09/23/20 16:19 Oxygen Delivery Method Room Air 09/23/20 16:19 Oxygen Flow Rate 0 09/23/20 16:19 Pain Level 10 09/23/20 16:38
--- NOTE | 2020-09-23 17:26 | DI.VRAD_ITS ---
PROCEDURE INFORMATION: Exam: XR Left Ribs Exam date and time: 09/23/2020 5:03 PM Age: 85 years old Clinical indication: Other: Rib pain; Chest wall pain; Left TECHNIQUE: Imaging protocol: XR Left ribs. Views: 2 views. COMPARISON: CT CHEST/ABD/PEL W 09/11/2020 9:36 PM FINDINGS: Bones/joints: Bones are demineralized. Degenerative arthritis in the visualized spine and shoulders. Mild anterior wedging of several thoracic vertebral bodies. Lungs: Strands of atelectasis in the left lung base.. Pleural space: Small left pleural effusion. Heart/Mediastinum: Esophageal hiatal hernia. Vasculature: Aortic calcifications. Soft tissues: Normal. IMPRESSION: No rib fracture identified but there is a small left effusion. PROCEDURE INFORMATION: Exam: XR Chest Exam date and time: 09/23/2020 5:03 PM Age: 85 years old Clinical indication: Other: Rib pain; Chest wall pain; Left TECHNIQUE: Imaging protocol: XR of the chest. Views: 2 views. COMPARISON: CT CHEST/ABD/PEL W 09/11/2020 9:36 PM FINDINGS: Lungs: Strands of atelectasis in the left lung base.. Pleural spaces: Small left pleural effusion. Heart/Mediastinum: Esophageal hiatal hernia. Vasculature: Aortic calcifications. Bones/joints: Bones are demineralized. Degenerative arthritis in the visualized spine and shoulders. Mild anterior wedging of several thoracic vertebral bodies. IMPRESSION: Small left pleural effusion with atelectasis in the left lung base and a large esophageal hiatal hernia Dictated and Authenticated by: Trini Davidson MD. Ordering:CATY Chester MD
[2020-09-23] MEDS: Lidocaine 5% Patch 2 PATCH TP (18:00)
[2020-09-23] MEDS: Azithromycin 250 MG TAB 500 MG PO (18:00)
[2020-09-23 18:09] VITALS: BP 149/68; PULSE 78; RESP 16; TEMP 36.8; O2SAT 95
== END 2020-09-23 18:19 | disposition home or self-care (01) ==
PROVIDERS: Emergency Provider Student in an Organized Health Care Education/Training Program
DX: S22.21XA Fracture of manubrium, initial encounter for closed fracture (principal); R07.82 Intercostal pain; W19.XXXA Unspecified fall, initial encounter; R05 Cough; J90 Pleural effusion, not elsewhere classified; J98.11 Atelectasis
CPT/HCPCS: 93005; 99284; 71046; 71100; 93010; 99285

== ENCOUNTER 2021-02-21 02:45 | Outpatient (CLI) | payer MEDICARE, SELFPAY ==
[2021-02-21 11:29] LABS: ALT 27 U/L (14-59); AST 22 U/L (15-37); Albumin 3.9 g/dL (3.4-5.0); Alkaline Phosphatase 105 U/L (46-116); BUN 32 mg/dL (7-18); Bilirubin, Total 0.6 mg/dL (0.2-1.0); Calcium 9.6 mg/dL (8.5-10.1); Calculated LDL 226 mg/dL (<100); Chloride 104 mmol/L (98-107); Cholesterol 322 mg/dL (<200); Estimated GFR 52.82 (mL/min/1.73m2); Glucose 93 mg/dL (74-106); HDL Cholesterol 76 mg/dL (40-60); Potassium 4.2 mmol/L (3.5-5.1); Sodium 141 mmol/L (136-145); Total Protein 7.1 g/dL (6.4-8.2); Triglyceride 103 mg/dL (<150)
== END 2021-02-21 02:46 | disposition home or self-care (01) ==
LOC: LBO 02:45
DX: E78.5 Hyperlipidemia, unspecified (principal); I10 Essential (primary) hypertension
CPT/HCPCS: 36415; 80053; 80061

== ENCOUNTER 2021-02-21 04:11 | Outpatient (CLI) | payer MEDICARE, SELFPAY ==
--- NOTE | 2021-02-21 08:30 | DI.MAMMO_ITS ---
Exam(s) MAMMO SCREENING EXAM: MAMMO SCREENING CLINICAL HISTORY: screening,z12.39 TECHNIQUE: Bilateral full field digital CC and MLO mammographic images were obtained with 3D tomosyn thesis and utilizing computer aided detection (CAD). COMPARISON: Available for comparison. FINDINGS: Masses/Architectural Distortion: None seen. Microcalcifications: No suspicious pleomorphic-type are seen. Skin Thickening/Nipple Retraction: None. IMPRESSION: 1. No significant interval change with no specific features of malignancy noted. 2. Unless there is more urgent need, screening mammography is recommended, as per [employer] guidelines. BI-RADS Category 1 - Negative Breast Density - Category B - Scattered areas of fibroglandular density Breast density category C or D implies that the patient has dense breast tissue. Dense breast tissue is very common and is not abnormal but dense breast tissue can make it harder to find cancer on a ma mmogram. Also, dense breast tissue may increase their breast cancer risk. This information about the result of the mammogram report was provided to the patient to raise their awareness. Use this report when you speak with the patient about their risks for breast cancer, which includes their family hist ory. At that time, you may recommend for more screening tests (Ultrasound or MRI) as they might be us eful based on their risk. A negative radiographic report should not delay biopsy if a dominant or clinically suspicious mass is present. Up to ten percent of cancers are not identified on mammography. A negative report may reinforce clinical impression. Adenosis and dense breasts may obscure an underlying neoplasm. False positive reports average 6 to 10%. Patient will receive a letter notifying them of these results.
== END 2021-02-21 04:31 ==
DX: Z12.31 Encounter for screening mammogram for malignant neoplasm of breast (principal)
CPT/HCPCS: 77063; 77067

== ENCOUNTER 2022-06-03 03:25 | Outpatient (CLI) | payer MEDICARE, SELFPAY ==
--- NOTE | 2022-06-03 07:00 | DI.MAMMO_ITS ---
Exam(s) MAMMO SCREENING EXAM: MAMMO SCREENING CLINICAL HISTORY: screening,Z12.39 TECHNIQUE: Mammograms were interpreted according to the usual protocol including computer analysis w [employer] CAD system, tomosynthesis and C-view imaging. COMPARISON: 2013 through 2020 FINDINGS: The breasts are composed of scattered fibroglandular densities, Breast Density category B. No suspicious masses or suspicious microcalcifications are seen. No skin thickening or abnormal axillary lymph nodes are seen. There has been no significant change from prior exams. IMPRESSION: BI-RADS Category 1, Negative mammogram Yearly screening mammography is recommended. Breast Density - Category B, scattered fibroglandular densities. A negative radiographic report should not delay biopsy if a dominant or clinically suspicious mass is present. Up to ten percent of cancers are not identified on mammography. A negative report may reinforce clinical impression. Adenosis and dense breasts may obscure an underlying neoplasm. False positive reports average 6 to 10%. Patient will receive a letter notifying them of these results.
== END 2022-06-03 03:45 ==
LOC: DI 03:25
PROVIDERS: PCP Nurse Practitioner Family; Visit Provider Nurse Practitioner Family
DX: Z12.31 Encounter for screening mammogram for malignant neoplasm of breast (principal)
CPT/HCPCS: 77063; 77067

== ENCOUNTER 2022-09-14 01:00 | Outpatient (CLI) | payer MEDICARE, SELFPAY ==
--- NOTE | 2022-09-14 09:31 | DI.RAD_ITS ---
Exam(s) RF MODIFIED SPEECH BA SWALLOW TECHNIQUE: Modified barium swallow was performed in conjunction with speech pathology. CONTRAST MATERIAL: Oral barium Oral water soluble contrast was administered. COMPARISON: No exams were available for comparison FINDINGS: Fluoroscopy provided during modified barium swallow study performed by the speech therapist. See garry t procedure report for details. IMPRESSION: No evidence of obvious aspiration RADIATION DOSE DELIVERED: vane Meredith=8.15 mGy
[2022-09-14] MEDS: Barium Sulfate 40% W/V 240 ML BTL 70 ML PO (09:34)
[2022-09-14] MEDS: Barium Sulfate 40% W/V 1500 CPS 250 ML BTL PO (09:34)
[2022-09-14] MEDS: Barium Sulfate Oral Paste 40% W/V 230 ML TUBE 13 ML PO (09:35)
[2022-09-14] MEDS: Barium Sulfate 81% w/w for Oral Suspension 148 GM BTL 70 GM PO (09:35)
[2022-09-14] MEDS: Barium Sulfate 700 MG TAB PO (09:36)
--- NOTE | 2022-09-14 09:40 | ST.MBS ---
Date of Service Date of service: 09/14/22 Time of Service: 09:41 Modified Barium Swallow Study Findings: Video fluoroscopic Swallowing Evaluation (VFSE) / Modified Barium Swallow Study (MBSS) Speech Language Pathology Report Patient referred for VFSE/MBSS from Dr. Olivas given patient complaint of globus sensation. HPI & Patient report of function: Patient is an 87 year old F with history of GERD who presents for MBSS this date with complaints of globus sensation and feelings of something getting stuck when she swallows. Other prior medical history relatively uncomplicated. Past Medical History ?? ? Hyperlipidemia. ? Osteoporosis. ? Hypertension. ? ? ? Surgical History appendectomy? tubal ligation? ? IMPRESSIONS: Per radiologist, noting presence of hiatal hernia. Oral-pharyngeal swallow functional is within safe and functional limits. Only mild oral>pharyngeal dysphagia, likely due to normal aging. No aspiration. Only scant flash penetration (normal finding). No overt CP hypertrophy other CP abnormalities. Only trace to none pharyngeal residue. Patient with intermittent cough response and reported stasis localized to UES without residue or penetration/aspiration. Suspect hypersensitivity possibly secondary to chronic reflux. Specialist referrals:? GI ?pending patient goals of care RECOMMENDATIONS: Diet Texture Recommendation:? IDDSI LEVEL SOLIDS 7-Regular Solids LIQUIDS 0-Thin Liquids Please see further details at?[email or web address] MEDICATIONS Whole with 0-Thin Liquids Diet texture modification is per patient's preference; please adjust diet textures at patient's discretion & collaboration with care team. Do not alter medications (e.g., cut)? without advice from your MD or pharmacist. Risk Management Strategies:? Behavioral reflux precautions, including upright position during + 90 mins after meals. Small bites, approx [id number] Small sips, approx 10 mL Control risk factors for aspiration pneumonia via (a) thorough oral hygiene & (b) maintaining physical mobility as tolerated PLAN: No further [employer] services necessary. ----- OBJECTIVE Videofluoroscopic Swallow Evaluation (VFSE/MBSS) was conducted in the lateral projection by Speech-Language Pathologist, in collaboration with Radiologist, to evaluate oropharyngeal swallow function. Anatomic view under fluoroscopy: Radiologist noting presence of hiatal hernia. PO Barium Contrast Trials Oral barium water-soluble contrast was administered as follows: IDDSI Level 0 Varibar thin liquid (40% w/v) IDDSI Level 4 Varibar pudding/pureed/extremely thick (40% w/v) IDDSI Level 7 Regular Solid: 1/2 xavier cracker coated in 3 mL Varibar pudding 13 mm barium tablet taken with Thin Liquids. MBSImP Component Scores: COMPONENT Scale SCORE 1 Lip closure (0-4) 0 Resulted in no labial escape 2 Hold Position (0-3) 1 Allowed bolus escape to lateral buccal cavity/floor of mouth 3 Bolus Preparation (0-4) 1 Resulted in slow prolonged chewing/mashing with complete re-collection 4 Bolus Transport (0-4) 2 Was with slowed tongue motion 5 Oral Residue (0-4) 2 Was a collection on oral structures 6 Swallow Initiation (0-4) 3 Occurred when the bolus head was in the pyriform sinuses 7 Soft Palate Elevation (0-4) 0 Resulted in no bolus between soft palate and the pharyngeal wall 8 Laryngeal Elevation (0-3) 1 Was decreased with partial superior movement of thyroid cartilage/partial approximation of arytenoids to epiglottic petiole 9 Anterior Hyoid Motion (0-2) 1 Demonstrated partial anterior movement 10 Epiglottic Movement (0-2) 0 Resulted in complete inversion 11 Laryngeal Closure (0-2) 0 Was complete with no air or contrast in laryngeal vestibule 12 Pharyngeal Stripping Wave (0-2) 0 Was present and complete 13 Pharyngeal Contraction (0-3) NA 14 PES Opening (0-3) 0 Was completely distended and complete duration with no obstruction of flow 15 Tongue Base Retraction (0-4) 1 Allowed a trace column of contrast or air between tongue base and pharyngeal wall 16 Pharyngeal Residue (0-4) 1 Showed a trace within or on pharyngeal structures 17 Esophageal Clearance (0-4) NA Results: COMPONENT Scale SCORE 1 Oral Score (0-18) 9 2 Pharyngeal Score (0-29) 2 3 Esophageal Score (0-4) 0 Dysphagia Outcome and Severity Scale: COMPONENT Scale SCORE 1 LEVEL (1-7) 6 Full PO: Normal Diet - Within functional limits/modified independence Penetration-Aspiration Scale: COMPONENT Scale SCORE 1 Thin liquid (1-8) 2 Contrast entered the airway, remained above the vocal folds, and was ejected from the airway. 2 [place] thick (1-8) NA 3 Honey thick (1-8) NA 4 Pudding thick (1-8) 1 Contrast did not enter the airway 5 Cookie (1-8) 1 Contrast did not enter the airway Trialed Compensatory Strategies & Outcome: Maneuvers Successful (+) Unsuccessful (-) Postures Successful (+) Unsuccessful (-) 3 second Preparatory Set? ? +/- Chin Tuck Posture? ? Cough? ? Posterior Head tilt? Reflexive? Cued? Throat Clear? ? Head Tilt to? Reflexive? Left? Cued? Right? ? Saliva swallow? ? + (oral clearance) Head Turn/Rotate to? ? Supraglottic Swallow? Left? ? Super-supraglottic Swallow? Right? ? Bolus Modifications Successful (+) Unsuccessful (-) Delivery/Alternating Consistencies ? Follow with Liquid Wash ? Follow with Solid Bolus? Delivery/Via Straw? ? Reduced Volume? ? +/- Reduced Rate of Intake? ? +/- Increased Viscosity? ? Other:?? ? Thank you for allowing us to take part in this patient's care. Please feel free to contact the [facility] Speech Language Pathology Department with any questions/concerns. Coding CPT Codes MOTION FLUOROSCOPY/SWALLOW - [id number] ([id number])
== END 2022-09-14 01:20 ==
LOC: DI 01:00
PROVIDERS: PCP Nurse Practitioner Family; Visit Provider Otolaryngology Otolaryngology/Facial Plastic Surgery
DX: R13.10 Dysphagia, unspecified (principal)
CPT/HCPCS: 92611; 74221

== ENCOUNTER 2023-04-29 20:37 | Outpatient (CLI) | payer MEDICARE, SELFPAY ==
[2023-04-29 16:10] LABS: Hemoglobin A1C 5.4 % (<5.7)
[2023-04-29 16:38] LABS: ALT 34 U/L (14-59); AST 27 U/L (15-37); Albumin 3.7 g/dL (3.4-5.0); Alkaline Phosphatase 101 U/L (46-116); Anion Gap 6.9 mmol/L (3-11); BUN 22 mg/dL (7-18); Bilirubin, Total 0.5 mg/dL (0.2-1.0); CO2 29.1 mmol/L (21.0-32.0); CREATININE 0.9 mg/dL (0.55-1.02); Calcium 9.5 mg/dL (8.5-10.1); Calculated LDL 122 mg/dL (<100); Chloride 105 mmol/L (98-107); Cholesterol 224 mg/dL (<200); Estimated GFR 62.26 (mL/min/1.73m2); Glucose 101 mg/dL (74-106); HDL Cholesterol 75 mg/dL (40-60); Magnesium 1.9 mg/dL (1.8-2.4); Potassium 3.8 mmol/L (3.5-5.1); Sodium 141 mmol/L (136-145); TSH (W/Ref FT4) 2.73 uIU/mL (0.36-3.74); Total Protein 7.4 g/dL (6.4-8.2); Triglyceride 138 mg/dL (<150)
[2023-05-04 15:17] LABS: Hepatitis C Ab w Rflx HCV PCR Negative (Negative)
== END 2023-04-29 20:38 | disposition home or self-care (01) ==
LOC: LBO 20:37
PROVIDERS: PCP Nurse Practitioner Family; Visit Provider Nurse Practitioner Family
DX: I10 Essential (primary) hypertension (principal); E78.5 Hyperlipidemia, unspecified; R73.01 Impaired fasting glucose
CPT/HCPCS: 36415; 80053; 80061; 86803; 83036; 83735; 84443

== ENCOUNTER → 2023-06-16 01:46 | Outpatient (CLI) | payer MEDICARE, SELFPAY | PROVIDERS: PCP Nurse Practitioner Family; Visit Provider Nurse Practitioner Family | DX: R01.1 Cardiac murmur, unspecified (principal) | CPT/HCPCS: 93306 ==

== ENCOUNTER 2025-03-22 03:33 | Outpatient (CLI) | payer MEDICARE, SELFPAY ==
[2025-03-22 11:12] LABS: HCT 37.3 % (36.0-46.0); HGB 12.1 g/dL (11.2-15.7); MCH 28.5 pg (27.0-33.0); MCHC 32.4 % (32.0-36.0); MCV 88 fL (80-95); MPV 10.7 fL (8.0-11.0); Platelet Count 333 10^3/uL (130-400); RBC 4.25 10^6/uL (3.93-5.22); RDW 13.0 % (11.7-14.6); RDW-SD 41.8 fL; WBC 5.54 10^3/uL (4.4-10.8)
[2025-03-22 12:55] LABS: Anion Gap 8.6 mmol/L (3-11); BUN 24 mg/dL (7-18); CO2 29.4 mmol/L (21.0-32.0); Calcium 9.4 mg/dL (8.5-10.1); Calculated LDL 139 mg/dL (<100); Chloride 104 mmol/L (98-107); Cholesterol 228 mg/dL (<200); Estimated GFR 48.33 (mL/min/1.73m2); Glucose 96 mg/dL (74-106); HDL Cholesterol 70 mg/dL (>or=50); Potassium 4.3 mmol/L (3.5-5.1); Sodium 142 mmol/L (136-145); Triglyceride 95 mg/dL (<150); Vitamin B12 1719 pg/mL (193-986); Vitamin D 25 Total 65 ng/mL (30-100)
== END 2025-03-22 03:34 | disposition home or self-care (01) ==
LOC: LBO 03:33
PROVIDERS: PCP Nurse Practitioner Family; Visit Provider Nurse Practitioner Family
DX: M85.80 Other specified disorders of bone density and structure, unspecified site (principal); K21.9 Gastro-esophageal reflux disease without esophagitis; I10 Essential (primary) hypertension; E78.5 Hyperlipidemia, unspecified
CPT/HCPCS: 36415; 80048; 80061; 82306; 85027; 82607

== ENCOUNTER 2025-03-26 03:39 | Outpatient (CLI) | payer MEDICARE, SELFPAY ==
--- NOTE | 2025-03-26 13:15 | DI.US_ITS ---
Exam(s) US CAROTID EXAM: US CAROTID CLINICAL HISTORY: right neck pulsatile mass, carotid bruits,r22.1,R09.89. TECHNIQUE: Ultrasound carotids performed using grayscale, color-flow, and spectral Doppler imaging. COMPARISON: CT CT CHEST/ABD/PEL W from 09/11/2020 FINDINGS: CAROTID ARTERIES: There is some plaque evident bilaterally at the level the carotid bulbs and proximal internal carotid artery levels. There are mildly elevated velocities in the distal right internal carotid artery in the upper neck with 140 cm/sec in the distal right internal carotid artery in the neck. This implies probable moderate stenosis of 50-69 percent. Of the opposite-left side there is mildly elevated velocity in the proximal left ICA exhibiting 128 cm/sec peak systolic velocity. Also implies stenosis of approximately 50-69 percent. With respect of the right supraclavicular region, although the submitted images do not reveal this, review of a previous contrast infused chest CT scan August 2020 reveals the bifurcation of the right brachiocephalic artery into the right common carotid artery and right subclavian artery being in the supraclavicular region and minimally prominent in size. This most probably explains the clinical findings. VERTEBRAL ARTERIES: Antegrade flow was demonstrated in both vertebral arteries Measurements: R Bulb: 85.2cm/s PS / 11.5cm/s ED R CCA: 96.9cm/s PS / 20.6cm/s ED R ECA: 98.4cm/s PS / 8.9cm/s ED R ICA Prox: 62.3cm/s PS / 17cm/s ED R ICA Mid: 102cm/s PS / 21.7cm/s ED R ICA Distal: 140.4cm/s PS /32.7cm/s ED R Vert: 67.3cm/s PS / 15.8cm/s ED R SVR: 1.4 R DVR: 1.6 L Bulb: 85.6cm/s PS / 15.8cm/s ED L CCA: 110.2cm/s PS / 25.2cm/s ED L ECA: 136.7cm/s PS / 0cm/s ED L ICA Prox: 128.4cm/s PS / 23.4cm/s ED L ICA Mid: 111.6cm/s PS / 17.9cm/s ED L ICA Distal: 100.8cm/s PS / 25.1cm/s ED L Vert: 120.6cm/s PS / 28.7cm/s ED L SVR: 1.2 L DVR: 0.9 IMPRESSION: 1. Mildly elevated velocities bilaterally indicate moderate amount of stenosis in the internal carotid arteries in the neck, a fracture the 50-69 percent bilaterally. 2. Slight tortuosity and prominence of the right brachiocephalic artery as seen on CT scan of August 2020 most probably corresponds to the clinical finding in the right supraclavicular region, as described above. Criteria for Carotid Stenosis: Normal: ICA PSV <125 cm/s no plaque or intimal thickening is visible. <50% stenosis: ICA PSV <125 cm/s and plaque or intimal thickening is visible. 50-69% stenosis: ICA PSV is 125-250 cm/s and plaque is visible. >70% stenosis to near occlusion: ICA PSV >250 cm/s with visible plaque and luminal narrowing. DATA REPOSITORY:
== END 2025-03-26 03:59 ==
LOC: DI 03:39
PROVIDERS: PCP Nurse Practitioner Family; Visit Provider Nurse Practitioner Family
DX: R22.1 Localized swelling, mass and lump, neck (principal); R09.89 Other specified symptoms and signs involving the circulatory and respiratory systems
CPT/HCPCS: 93880

== ENCOUNTER → 2025-04-04 02:25 | Outpatient (CLI) | payer MEDICARE, SELFPAY ==
--- NOTE | 2025-04-04 07:45 | DI.MAMMO_ITS ---
Exam(s) MAMMO SCREENING EXAM: MAMMO SCREENING CLINICAL HISTORY: screening,z12.39. TECHNIQUE: Bilateral full field digital CC and MLO mammographic images were obtained with 3D tomosynthesis and utilizing computer aided detection (CAD). COMPARISON: Prior mammograms were reviewed. FINDINGS: There has been no significant change in the appearance and distribution of the fibroglandular tissue. No CAD designations. No new right breast findings. Skin moles in the upper left breast are noted, slightly more prominent presently. There are no new spiculated masses nor new malignant-appearing microcalcification groups in either breast. There is no significant architectural distortion nor skin thickening-retraction. IMPRESSION: Benign findings. No radiographic evidence of malignancy. BI-RADS Category 2 - Benign Findings Breast Density - Category B - There are scattered areas of fibroglandular density. Breast density Category C or D implies that the patient has dense breast tissue. Dense breast tissue can make it harder to find cancer on a mammogram. Dense breast tissue is also associated with an increased risk of breast cancer. This information about the result of the mammogram report was provided to the patient to raise their awareness. Use this report when you speak with the patient about their risks for breast cancer, which includes their family history. At that time, you may recommend additional screening tests (Ultrasound or MRI) as these tests may add significant information. A negative radiographic report should not delay biopsy if a dominant or clinically suspicious mass is present. Up to ten percent of cancers are not identified on mammography. A negative report may reinforce clinical impression. Adenosis and dense breasts may obscure an underlying neoplasm. False positive reports average 6 to 10%. Patient will receive a letter notifying them of these results.
== END ==
LOC: DI 02:25
PROVIDERS: PCP Nurse Practitioner Family; Visit Provider Nurse Practitioner Family
DX: Z12.31 Encounter for screening mammogram for malignant neoplasm of breast (principal); R92.323 Mammographic fibroglandular density, bilateral breasts
CPT/HCPCS: 77063; 77067